=== PATIENT | female | born 1975 | race Caucasian/White ===

== ENCOUNTER 2023-07-06 06:30 | Day surgery (SDC) | payer BC ==
[2023-07-04 10:51] VITALS: BMI 29.0
[2023-07-06] MEDS ORDERED: LIDOCAINE HCL 1%, 10 MG/ML (20ML VIAL) ONE (07:07)
[2023-07-06] MEDS ORDERED: BUPIVACAINE HCL/PF 2.5 MG/ML - 30 ML VIAL IJ ONE (07:07)
[2023-07-06] MEDS ORDERED: PROPOFOL 40 ML ONE (07:28)
[2023-07-06] MEDS ORDERED: LIDOCAINE HCL 2% 100 MG/5 ML DISP.SYRIN ONE (07:28)
[2023-07-06] MEDS ORDERED: MIDAZOLAM HCL 2 MG/2 ML SINGLE DOSE VIAL ONE (07:29)
[2023-07-06] MEDS ORDERED: ONDANSETRON 4 MG/2 ML VIAL ONE (07:46)
[2023-07-06] MEDS ORDERED: KETOROLAC TROMETHAMINE 30 MG/1 ML VIAL ONE (07:46)
[2023-07-06] MEDS ORDERED: DEXAMETHASONE SOD PHOSPHATE 4 MG/1 ML VIAL ONE (07:46)
[2023-07-06] MEDS ORDERED: ceFAZolin SODIUM 1 GM VIAL ONE (07:49)
[2023-07-06] MEDS ORDERED: SUCCINYLCHOLINE CHLORIDE 200 MG/10 ML SYRINGE ONE (08:00)
[2023-07-06] MEDS ORDERED: oxyCODONE HCL 5 MG TABLET PO PRN ×2 (08:22)
[2023-07-06 09:09] VITALS: BP 108/68; PULSE 74; RESP 16; TEMP 97.6
== END 2023-07-06 09:33 | disposition home or self-care (01) ==
LOC: FASU 06:30
PROVIDERS: ATTEND Orthopaedic Surgery
PROC: 01N50ZZ Release Median Nerve, Open Approach (ICD-10-PCS; principal; 2023-07-06 08:06)
DX: G56.02 Carpal tunnel syndrome, left upper limb (principal)
CPT/HCPCS: 81025; 94760